=== PATIENT | female | born 1970 | race American Indian/Alaskan Native ===

== ENCOUNTER 2018-07-04 08:55 | Emergency (ER) | payer OTHER ==
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
[2018-07-04 10:52] LABS: HCG Qualitative,Urine Negative (Negative)
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
[2018-07-04 12:41] VITALS: BP 168/98
== END 2018-07-04 12:45 | disposition home or self-care (01) ==
LOC: ED 08:55
DX: S33.5XXA Sprain of ligaments of lumbar spine, initial encounter (principal); S13.9XXA Sprain of joints and ligaments of unspecified parts of neck, initial encounter; I10 Essential (primary) hypertension; V89.2XXA Person injured in unspecified motor-vehicle accident, traffic, initial encounter; Y93.89 Activity, other specified; Y92.488 Other paved roadways as the place of occurrence of the external cause; Y99.8 Other external cause status
CPT/HCPCS: 72072; 72100; 72125; 81025; 99284